=== PATIENT | female | born 1990 | race Caucasian/White ===

== ENCOUNTER 2017-02-25 08:16 | Day surgery (SDC) | payer BC ==
[2017-02-25 09:47] LABS: PROTHROMBIN TIME 12.6 SEC (11.4-15.4)
[2017-02-25 09:49] LABS: PARTIAL THROMBOPLASTIN TIME 31.7 SEC (23.5-35.8)
[2017-02-25] MEDS ORDERED: MIDAZOLAM 2 MG/2 ML INJ ONE (11:34)
[2017-02-25 12:59] LABS: GLUCOSE,CSF 57 mg/dL (40-70)
[2017-02-25 13:00] LABS: APPEARANCE ALL TUBES CLEAR
[2017-02-25 13:01] LABS: RBC AVERAGE 0.5; RBC DILUENT USED NONE USED; RBC DILUTION FACTOR 1; RBC SIDE 1 1; RBC SIDE 2 0; TOTAL RBC SQUARES COUNTED 225
[2017-02-25 13:02] LABS: WHITE BLOOD CELL,CSF 0 /uL (0-5)
--- NOTE | 2017-02-25 14:07 | RADIOLOGY REPORT (SQ) ---
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 FLUOROSCOPY TIME: 1 minutes 5 seconds 1 digital lumbar image saved to PACS. TECHNIQUE: Fluoroscopic guided lumbar puncture. LIMITATIONS: None. PROCEDURE: After written consent and assessment were obtained, the patient was brought into the fluo roscopy room and placed prone on the table. The patient's lower back was prepped in a sterile fashio n and an entry site was selected under live fluoroscopic guidance. The entry site was anesthetized wi th 4.5 mL of 1% lidocaine. A 20 gauge needle was advanced through the skin and into the thecal sac at the left paracentral L2-3 level. After approximately 17 ml was drained, the needle was removed and a sterile bandage was placed of the site. Specimens were sent to the lab for testing. A fluoroscopi c spot image was saved to PACS confirming level access. FINDINGS: Clear CSF Opening pressure 32 cm of water, closing pressure 17 cm of water. IMPRESSION: Lumbar puncture under fluoroscopy with large volume tap. Specimen sent for testing. COMMENT: Patient medication list reviewed: Yes- Quality ID# [id number]:Eligible professional attests to doc umenting in the medical record they obtained, updated, or reviewed the patient's current medications. . Quality ID 145: Final reports for procedures using fluoroscopy that document radiation exposure tracie cathy, or exposure time and number of fluorographic images (if radiation exposure indices are not avail able) TECHNICAL DOCUMENTATION: JOB ID: [id number] [employer]- All Rights Reserved
[2017-02-25 14:28] VITALS: BP 105/58
== END 2017-02-25 14:20 | disposition home or self-care (01) ==
LOC: RAD 08:16
PROVIDERS: ATTEND Specialist
PROC: 009U3ZX Drainage of Spinal Canal, Percutaneous Approach, Diagnostic (ICD-10-PCS; principal; 2017-02-25)
DX: G93.2 Benign intracranial hypertension (principal)
CPT/HCPCS: 36415; 87070; 87205; 85610; 85730; 89050; 82945; 84157; 77003; 62270; J2250; 77001